=== PATIENT | female | born 1965 | race Hispanic/Latino ===

== ENCOUNTER 2018-03-20 06:01 | Outpatient (CLI) | payer OTHER | END 2018-03-20 06:02 | disposition home or self-care (01) | LOC: C.LAB 06:01 | DX: G51.0 Bell's palsy (principal) ==

== ENCOUNTER 2018-04-30 12:59 | Outpatient (CLI) | payer OTHER | END 2018-04-30 13:00 | disposition home or self-care (01) | LOC: C.MRIC 13:00 | DX: M54.17 Radiculopathy, lumbosacral region (principal) ==